=== PATIENT | female | born 2000 | race Two or more races ===

== ENCOUNTER 2018-10-23 08:53 | Emergency (ER) | payer MEDICAID ==
[~2018-10-23] VITALS: Ht 160 cm; Wt 77.1 kg
[2018-10-23 09:16] VITALS: BP 118/73
[2018-10-23] MEDS ORDERED: KETOROLAC TROMETH 60MG/2ML VIAL IM ONE (10:15)
[2018-10-23] MEDS ORDERED: diphenhdrAMINE HCL 25 MG CAP PO ONE (10:15)
[2018-10-23] MEDS ORDERED: ONDANSETRON ODT 4 MG TAB PO ONE (10:15)
== END 2018-10-23 10:29 | disposition home or self-care (01) ==
LOC: ER 08:53
DX: R51 Headache (principal); R11.0 Nausea; H53.8 Other visual disturbances; J45.909 Unspecified asthma, uncomplicated
CPT/HCPCS: 70450; 96372; 99284; J1885